=== PATIENT | female | born 1990 | race Caucasian/White ===

== ENCOUNTER → 2017-02-20 | Outpatient (CLI) | payer BC ==
[~2017-02-20] MED LIST: ALBU18HF2 ORAL INH; BENZ100C97 PO; BIOTIN OTC; CODE118S2 PO; MULT-1198; PRED50TA PO; PREN-92 PO
--- NOTE | 2017-02-20 11:11 | DI ---
INDICATION: ITS.REASON: J06.9 ACUTE UPPER RESPIRATORY INFECTION; R06.2 WHEEZING; R79.81 L PROCEDURE: CHEST 2-VIEWS UPRIGHT (PA \T\ LAT) Encounter: Initial COMPARISON: None FINDINGS: The lungs are clear without evidence of focal abnormal airspace opacity. There is no pleural effusion or pneumothorax. The heart size, mediastinal contours and pulmonary vascularity are within normal limits. There is no significant skeletal abnormality. IMPRESSION: No acute cardiopulmonary disease. .
== END ==
LOC: IMA 10:49
PROVIDERS: ATTEND Registered Nurse
DX: J06.9 Acute upper respiratory infection, unspecified (principal); R06.2 Wheezing; R79.81 Abnormal blood-gas level